=== PATIENT | female | born 1965 | race Caucasian/White ===

== ENCOUNTER → 2018-03-08 | Outpatient (CLI) | payer BC ==
--- NOTE | 2018-03-08 19:54 | CONS ---
CONSULTATION DATE OF SERVICE: 03/08/2018 53-year-old lady who has been evaluated in the Sleep Center for possible obstructive sleep apnea-hypopnea syndrome. HISTORY OF PRESENT ILLNESS/SLEEP-WAKE EVALUATION: Patient usual sleep schedule on working days from 11:30 p.m. to 5:00-5:30 a.m., on weekends from around 11:30-midnight until 8:00-8:30 a.m. Usually no problems with falling asleep, although she has a TV set in bedroom. She normally sleeps on the back position with her with snoring and occasional witnessed episodes of stopped breathing during the sleep. She wakes up from sleep with clenching of her teeth and nocturia up to 1 time. No history of hypnagogic hallucinations, sleep paralysis or cataplexy. She usually does not take any naps. [place] Sleepiness Scale is 3. PAST MEDICAL HISTORY: Positive for hyperlipidemia. PAST SURGICAL HISTORY: Cholecystectomy. MEDICATIONS: Atorvastatin. SOCIAL HISTORY: Negative for smoking. Alcohol consumption rarely. FAMILY HISTORY: Hypertension, heart problems, hyperlipidemia, arthritis, sleep apnea, snoring, cancer, diabetes, acid reflux, ulcers, thyroid problems. REVIEW OF SYSTEMS: Snoring, occasional awakenings from sleep. PHYSICAL EXAM: GENERAL lady without distress. VITAL SIGNS BP 140/83, HR 86, RR 16, height 5 feet 4 inches, weight 236, BMI 40.5, temperature 98.1, oxygen saturation room air 97%. HEENT PERRLA, EOMI, evaluation of oropharynx showed extremely low position of soft palate. Mallampati IV. Neck 15-1/2 inches in circumference. NECK Supple, no JVD. Thyroid is not palpable. LUNGS Clear to percussion and to auscultation. Good air exchange. No wheezing or rhonchi. HEART S1, S2 regular. No murmurs, gallops, or rubs. ABDOMEN Obese. Soft and nontender. Bowel sounds are present. No organomegaly appreciated. EXTREMITIES No clubbing or cyanosis. HOGSHEAD WRECKER Awake, alert, and oriented X3. Cranial nerves 2 to 7 intact. There is no fasciculation or atrophy. noted. No focal deficits observed. IMPRESSION: 1. Snoring, awakenings from sleep, extremely low position of soft palate, obstructive sleep apnea-hypopnea syndrome. 2. Menopause for 10 years. 3. Hyperlipidemia. 4. Obesity. 5. Status post cholecystectomy. PLAN: 1. Home sleep apnea test. 2. CPAP/BiPAP titration if sleep study confirms obstructive sleep apnea-hypopnea syndrome. 3. Preferable position during sleep on the side. 4. No driving if patient feels any sleepiness. 5. I will see patient for follow up visit to explain results of testing and following plan. Thank you very much for referring this patient for consultation. Sincerely, Adriano Martin MD, PhD, FAASM Diplomat of [place] [employer] Specialties [place] [employer] of [employer] Medicine Dubbing Machine Operator of [facility] [place] MMODL / IJN: [id number] /
== END | disposition home or self-care (01) ==
LOC: SLEEP 14:59
PROVIDERS: ATTEND Internal Medicine
DX: G47.33 Obstructive sleep apnea (adult) (pediatric) (principal); E78.5 Hyperlipidemia, unspecified; E66.9 Obesity, unspecified; Z68.41 Body mass index [BMI] 40.0-44.9, adult; Z78.0 Asymptomatic menopausal state; Z90.49 Acquired absence of other specified parts of digestive tract; Z79.899 Other long term (current) drug therapy
CPT/HCPCS: 99211

== ENCOUNTER → 2018-05-24 | Outpatient (CLI) | payer BC ==
--- NOTE | 2018-05-24 16:00 | PN ---
PROGRESS NOTE DATE OF SERVICE: 05/24/2018 53-year-old lady who has been followed in Sleep Center for treatment of obstructive sleep apnea-hypopnea syndrome. Recently patient had a home sleep apnea test, then received her CPAP unit. This is her first visit with the CPAP machine. Patient is able to use her CPAP equipment at home every night but she says slight leak from the full-face mask to the eyes area and the patient does not feel comfortable with that. We discussed results of sleep study in details. According to home sleep apnea test, Apnea-hypopnea index 29.1 with oxygen desaturation to 70%, which is borderline to severe sleep apnea and the patient did not sleep for the whole night of home sleep apnea test. Subsequently real apnea-hypopnea index is above 30 and is severe. I checked patient's CPAP unit. CPAP pressure in the range from 5-15 cm of water. Average pressure is 14.3 cm of water. Leak is 7 L/minute which is very minimal leak for the full-face mask. Apnea-hypopnea index for the last month is 5.3, which is acceptable range. Usage is 100% of the nights and 28/30 nights more than 4 hours with average usage is 6.2 hours. [place] Sleepiness Scale today is 0. MEDICATIONS: Atorvastatin. PHYSICAL EXAM: GENERAL: Patient in no distress., VITAL SIGNS: BP 152/89, HR is 87, RR 16, weight 249.8, temperature 98.2. Oxygen saturation at room air 98%. Oropharynx extremely low position of soft palate. Neck Supple, no JVD. Thyroid is not palpable. LUNGS Clear to percussion and to auscultation. Good air exchange. No wheezing or rhonchi. HEART S1, S2 regular. No murmurs, gallops, or rubs. ABDOMEN: Obese. Soft and nontender. Bowel sounds are present. No organomegaly appreciated. EXTREMITIES No clubbing or cyanosis. PRESS HELPER Awake, alert, and oriented X3. Cranial nerves 2 to 7 intact. There is no fasciculation or atrophy. noted. No focal deficits observed. IMPRESSION: 1. Severe obstructive sleep apnea-hypopnea syndrome. Patient demonstrated great compliance with treatment benefitting from treatment. 2. Patient has discomfort with full-face mask covering mouth and nose because it has leak, slight leak from the upper nose area to the eyes. 3. Obesity. 4. Hyperlipidemia. 5. Status post cholecystectomy. PLAN: 1. I taught patient how to adjust humidity in her CPAP unit because sometimes she feels that it is too hot in her mask and she started to sweat and sometimes it might be not enough she may develop some dryness in her mouth. 2. We will try to fit patient with a different style of full-face mask which goes to the nose from the below the nose and subsequently minimize risk of leak to the eye area. 3. The patient will continue to use CPAP equipment every night for the whole night. 4. Losing weight. 5. Sleep hygiene with regular time in bed for at least 8 hours. 6. No driving if feeling sleepiness. Thank you very much for allowing me to participate in management of your patient. MMODL / IJN: [id number] /
== END | disposition home or self-care (01) ==
LOC: SLEEP 14:12
PROVIDERS: ATTEND Internal Medicine
DX: G47.33 Obstructive sleep apnea (adult) (pediatric) (principal); E66.9 Obesity, unspecified; E78.5 Hyperlipidemia, unspecified; Z90.49 Acquired absence of other specified parts of digestive tract; Z99.89 Dependence on other enabling machines and devices

== ENCOUNTER → 2019-05-23 | Outpatient (CLI) | payer BC ==
--- NOTE | 2019-05-23 12:33 | SFUN ---
SLEEP CENTER FOLLOW UP NOTE DATE OF SERVICE: 05/23/2019 A 54-year-old lady who has been followed in the Sleep Center for treatment of obstructive sleep apnea-hypopnea syndrome. Patient continued to use her CPAP equipment every night for the whole night, according to patient no snoring with the machine. She is getting all her supplies for CPAP therapy in time. [place] Sleepiness Scale today is 4. I checked CPAP unit, range of the pressure 5-15 with average pressure of 14.1, usage for the last month, 30/30 nights with 26/30 nights for more than 4 hours with average usage 6.5 hours per night. Leak is 10 L/minute which is borderline acceptable. Apnea- hypopnea index 4.2, which is in normal range. MEDICATIONS: Atorvastatin, fenofibrate. PHYSICAL EXAM: Patient in no distress, BP 101/64, HR 88, RR 16, height 5, 4, weight 245, which is 4 pounds less than during the last visit one year ago. Oxygen saturation at room air 96%. OROPHARYNX: Extremely low position of soft palate. Mallampati 4. ABDOMEN: Slightly obese. NECK: Supple, no JVD. Thyroid is not palpable. LUNGS: Clear to percussion and to auscultation. Good air exchange. No wheezing or rhonchi. HEART: S1, S2 regular. No murmurs, gallops, or rubs. EXTREMITIES: No clubbing or cyanosis. MAPLE SUGAR MAKER: Awake, alert, and oriented X3. Cranial nerves 2 to 7 intact. There is no fasciculation or atrophy. noted. No focal deficits observed. IMPRESSION: 1. Severe obstructive sleep apnea-hypopnea syndrome. Patient demonstrated great compliance with treatment, benefitting from treatment. 2. Patient likes her nasal mask now complying with the previous mask last year over 1 year ago after mask was changed. 3. Obesity. 4. Hyperlipidemia. 5. Status post cholecystectomy. PLAN: 1. Patient will continue to use CPAP equipment every night for the whole night. 2. Continue losing weight. 3. Sleep hygiene with regular time in bed for at least 7-1/2 to 8 hours. 4. No driving if feeling sleepiness. 5. I will maintain all necessary prescriptions for CPAP supplies including mask, tube, filters. 6. Followup visit in 1 year or earlier if patient has any problems. Thank you very much for allowing me to participate in the management of your patient. Sincerely, Adriano Martin MD, PhD, FAASM Diplomat of [employer] Board [employer] Specialties [employer] Board of Internal Medicine Medical Office Manager of [facility] [place] MMKEVIN / MARILU: [id number] /
== END | disposition home or self-care (01) ==
LOC: SLEEP 09:53
PROVIDERS: ATTEND Internal Medicine
DX: G47.33 Obstructive sleep apnea (adult) (pediatric) (principal); E66.9 Obesity, unspecified; E78.5 Hyperlipidemia, unspecified; Z90.49 Acquired absence of other specified parts of digestive tract; Z99.89 Dependence on other enabling machines and devices; Z68.41 Body mass index [BMI] 40.0-44.9, adult; Z79.899 Other long term (current) drug therapy

== ENCOUNTER → 2020-05-28 | Outpatient (CLI) | payer BC ==
--- NOTE | 2020-05-28 16:48 | SFUN ---
SLEEP CENTER FOLLOW UP NOTE DATE OF SERVICE: 05/23/2020 55-year-old lady who has been followed in Sleep Center for treatment of obstructive sleep apnea-hypopnea syndrome. Patient successfully continues to use her CPAP equipment. Recently she received her new CPAP unit because the previous unit has some problems. She is using equipment every night for the whole night. No snoring with the machine. [place] Sleepiness Scale today is 5. I checked her CPAP unit. It is on automatic regimen. Range of the pressure 9-19, average pressure 14.8, usage is 30/30 nights for more than 4 hours with average usage is 7.1 hours per night. Leak is 7 L/minutes which is normal. Apnea-hypopnea index is 4.5, which is normal. MEDICATIONS: Atorvastatin 20 mg once a day. Fenofibrate 140 mg once a day. PHYSICAL EXAM: Patient in no distress. BP 133/89, HR 75, RR 15, height 5 feet 4 inches and weight 238.8, temp 98.5, oxygen saturation at room air 98%. Oropharynx extremely low position of soft palate. Mallampati 4. NECK: Supple, no JVD. Thyroid is not palpable. LUNGS: Clear to percussion and to auscultation. Good air exchange. No wheezing or rhonchi. HEART: S1, S2 regular. No murmurs, gallops, or rubs. ABDOMEN: Obese. Soft and nontender. Bowel sounds are present. No organomegaly appreciated. EXTREMITIES: No clubbing or cyanosis. LAST IRONER: Awake, alert, and oriented X3. Cranial nerves 2 to 7 intact. There is no fasciculation or atrophy. noted. No focal deficits observed. IMPRESSION: 1. Obstructive sleep apnea-hypopnea syndrome. Patient demonstrated 100% compliance with treatment benefitting from treatment. 2. The patient feels comfortable with her nasal mask and feels comfortable with the machine. 3. Obesity. 4. Hyperlipidemia. 5. Status post cholecystectomy. PLAN: 1. Patient will continue to use PAP equipment every night for the whole night. 2. Sleep hygiene with regular time in bed for at least 7-1/2 to 8 hours. 3. Precautions related to driving. No driving if feeling sleepiness. 4. I will maintain all necessary prescription for PAP supplies including mask, tube, filters. 5. Watching weight. 6. No driving if feeling sleepiness. 7. Follow-up visit in 6 months or earlier if patient has any problems. Thank you very much for allowing me to participate in management of your patient. Sincerely, Adriano Martin MD, PhD, FAASM Diplomat of [place] Board of Medical Specialties Swedish Board of Internal Medicine Environmental Scientists of [facility] [place] MMODL / BALJITN: [id number] /
== END | disposition home or self-care (01) ==
LOC: SLEEP 09:55
PROVIDERS: ATTEND Internal Medicine
DX: G47.33 Obstructive sleep apnea (adult) (pediatric) (principal); E66.9 Obesity, unspecified; E78.5 Hyperlipidemia, unspecified; Z99.89 Dependence on other enabling machines and devices; Z90.49 Acquired absence of other specified parts of digestive tract; Z79.899 Other long term (current) drug therapy

== ENCOUNTER → 2021-05-27 | Outpatient (CLI) | payer BC ==
--- NOTE | 2021-05-28 06:52 | SFUN ---
SLEEP CENTER FOLLOW UP NOTE DATE OF SERVICE: 05/27/2021 56-year-old lady has been followed in Sleep Center for treatment of obstructive sleep apnea-hypopnea syndrome. Patient continued to use her CPAP equipment every night. According to her , no snoring while she is using machine. She is getting for her supplies in time. [place] Sleepiness Scale today is 5. I checked his CPAP unit. Range of the pressure 9-19, average pressure 13.7, which is slightly less than during the last visit. Usage 30/30 nights for more than 4 hours with average 7.2 hours per night. Leak is 8 L/minute which is normal. Apnea-hypopnea index is 3.1, which is normal. MEDICATIONS: Atorvastatin 20 mg once a day, fenofibrate 145 mg once a day, oils daily supplement. PHYSICAL EXAMINATION: GENERAL: Patient in no distress. BP 142/89, HR 82, RR 16, height 5 feet 4-3/4 inches, weight 248.4 pounds, body mass index 41.6, temperature 97.3, oxygen saturation at room air 97%. Oropharynx: Extremely low position of soft palate, Mallampati 4. NECK: Supple, no JVD. Thyroid is not palpable. LUNGS: Clear to percussion and to auscultation. Good air exchange. No wheezing or rhonchi. HEART: S1, S2 regular. No murmurs, gallops, or rubs. ABDOMEN: Obese. Soft and nontender. Bowel sounds are present. No organomegaly appreciated. EXTREMITIES: No clubbing or cyanosis. WATER/WASTEWATER PROJECT MANAGER: Awake, alert, and oriented X3. Cranial nerves 2 to 7 intact. There is no fasciculation or atrophy. noted. No focal deficits observed. IMPRESSION: 1. Obstructive sleep apnea-hypopnea syndrome. Patient demonstrated great compliance with treatment benefitting from treatment, normal respiration on CPAP. 2. Obesity. The patient increased weight on about 10 pounds since previous visit. 3. Hyperlipidemia. 4. Status post cholecystectomy. PLAN: 1. Patient will continue to use PAP equipment every night for the whole night. 2. Sleep hygiene with regular time in bed for at least 7-1/2 to 8 hours. 3. Precautions related to driving. No driving if feeling sleepiness. 4. I will maintain all necessary prescription for PAP supplies including mask, tube, filters. 5. Watching weight. 6. Follow-up visit in 6 months or earlier if patient has any problems. Thank you very much for allowing me to participate in the management of your patient. Sincerely, Adriano Martin MD, PhD, FAASM Diplomat of [place] [employer] Specialties Sleep Medicine Board of [place] Board of Internal Medicine Surgical Instrument Mechanic of [facility] [place] MMODL / MARILU: [id number] /
== END ==
LOC: SLEEP 10:24
PROVIDERS: ATTEND Internal Medicine
DX: G47.33 Obstructive sleep apnea (adult) (pediatric) (principal); E66.9 Obesity, unspecified; E78.5 Hyperlipidemia, unspecified; Z90.49 Acquired absence of other specified parts of digestive tract; Z68.41 Body mass index [BMI] 40.0-44.9, adult

== ENCOUNTER → 2022-05-26 | Outpatient (CLI) | payer BC ==
--- NOTE | 2022-05-26 11:04 | P.PN ---
Subjective DATE: 05/26/2022 FOLLOW UP VISIT. Patient with obstructive sleep apnea hypopnea syndrome return to sleep center for follow-up visit. Information from previous visit have been reviewed. Patient is using PAP equipment every night for the whole night, getting PAP supplies in time. The patient does not have significant problems with the mask, PAP unit and humidification. [place] sleepiness scale is 2, which is normal. I checked information from PAP unit. PAP unit pressure 9-19, average 14.1, sometimes pressure came up to 19 cm H2O. Usage is 100 % for more then 4 hours, average 7.5 hours per night. Leak is 18.4 l/m, which is in acceptable range. Apnea Hypopnea Index is 3.2, which is normal. MEDICATIONS:1. Atorvastatin 2. Fenofibrate During physical exam: GENERAL: A pleasant patient without any distress. VITAL SIGNS: BP 127/84, HR 78, RR 16 , weight 253.6, temperature 97.4, oxygen saturation at room air 95 % . HEENT: PERRLA, EOMI.low position of soft palate, Mallapati 4 . NECK: Supple. No JVD. LUNGS: Clear to percussion and to auscultation. Good air exchange. No wheezing or rhonchi. HEART: S1, S2 regular. ABDOMEN: Soft and nontender. Obese EXTREMITIES: No clubbing or cyanosis. ASSEMBLY REPAIRER: Awake, alert, and oriented x3. No focal deficit. Impressions: 1. Obstructive sleep apnea-hypopnea syndrome. Patient demonstrated great compliance with treatment, benefiting from treatment. 2. Obesity. 3. Hyperlipidemia. 4. Status post cholecystectomy. Plan: 1. Continue using PAP equipment every night for the whole night. I changed maximal level of pressure to 20 cm of water. 2. To change air filter at least 1-2 times per month. 3. PAP unit should stay lower then position of the head. 4. Advised patient to remove all remaining water from humidifier canister daily and make it dry after each usage. Refill canister with fresh distilled water before each usage. 5. Sleep hygiene with regular time in bed for at least 8 hours. 6. Precautions related to driving. No driving if feel any sleepiness. 7. I will maintain prescription for PAP supplies including mask, tube, filters. 8. Follow up visit in 6 months or earlier if patient has any problems. 9. Watching and losing weight. Thank you very much for allowing me to participate in the management of your patient. Adriano Martin MD, PhD, FAASM. Diplomat of [place] Board of Sleep Medicine, Sleep Medicine Board by [employer] Board of Internal Medicine Paper Plate Machine Tender of [facility] [place]
== END ==
LOC: SLEEP 09:51
PROVIDERS: ATTEND Internal Medicine
DX: G47.33 Obstructive sleep apnea (adult) (pediatric) (principal); Z99.89 Dependence on other enabling machines and devices; E66.9 Obesity, unspecified; E78.5 Hyperlipidemia, unspecified; Z98.890 Other specified postprocedural states
CPT/HCPCS: 99212

== ENCOUNTER → 2023-05-25 | Outpatient (CLI) | payer BC ==
--- NOTE | 2023-05-25 11:12 | P.PN ---
Subjective DATE: 05/25/2023 FOLLOW UP VISIT. Patient with obstructive sleep apnea hypopnea syndrome return to sleep center for follow-up visit. Information from previous visit have been reviewed. Patient is using PAP equipment every night for the whole night, getting PAP supplies in time. The patient does not have significant problems with the mask, PAP unit and humidification. [place] sleepiness scale is 5 which is normal. I checked information from PAP unit. PAP unit pressure 9-20, average 13.8 cm H2O. Usage is 100% % for more then 4 hours, average 6.5 hours per night. Leak is 15.2 l/m, which is in acceptable range. Apnea Hypopnea Index is 3.3, which is normal. MEDICATIONS:1. Atorvastatin 2. Fenofibrate During physical exam: GENERAL: A pleasant patient without any distress. VITAL SIGNS: BP 123/80, HR 83, RR 18 , weight 250.6, temperature 98.2, oxygen saturation at room air 97 % . HEENT: PERRLA, EOMI.low position of soft palate, Mallapati 4 . NECK: Supple. No JVD. LUNGS: Clear to percussion and to auscultation. Good air exchange. No wheezing or rhonchi. HEART: S1, S2 regular. ABDOMEN: Soft and nontender. Obese EXTREMITIES: No clubbing or cyanosis. COLLECTION TELLER: Awake, alert, and oriented x3. No focal deficit. Impressions: 1. Obstructive sleep apnea-hypopnea syndrome. Patient demonstrated great compliance with treatment, benefiting from treatment. 2. Obesity. 3. Hyperlipidemia. 4. Status post cholecystectomy. Plan: 1. Continue using PAP equipment every night for the whole night. 2. To change air filter at least 1-2 times per month. 3. PAP unit should stay lower then position of the head. 4. Advised patient to remove all remaining water from humidifier canister daily and make it dry after each usage. Refill canister with fresh distilled water before each usage. 5. Sleep hygiene with regular time in bed for at least 8 hours. 6. Precautions related to driving. No driving if feel any sleepiness. 7. I will maintain prescription for PAP supplies including mask, tube, filters. 8. Watching and losing weight. 9. Follow up visit in 6 months or earlier if patient has any problems. Thank you very much for allowing me to participate in the management of your patient. Adriano Martin MD, PhD, FAASM. Diplomat of [place] Board of Sleep Medicine, Sleep Medicine Board by [place] Board of Internal Medicine Eyewear Manufacturing Supervisor of [facility] [place]
== END ==
LOC: 3 N SLEEP 10:24
PROVIDERS: ATTEND Internal Medicine
DX: G47.33 Obstructive sleep apnea (adult) (pediatric) (principal); E66.9 Obesity, unspecified; E78.5 Hyperlipidemia, unspecified; Z90.49 Acquired absence of other specified parts of digestive tract; Z99.89 Dependence on other enabling machines and devices
CPT/HCPCS: 99212

== ENCOUNTER → 2024-05-30 | Outpatient (CLI) | payer BC ==
[2024-05-30 11:26] VITALS: BP 132/79; PULSE 82; RESP 16; TEMP 98
--- NOTE | 2024-05-30 11:34 | P.PROGSL ---
Subjective DATE: 05/30/2024 FOLLOW UP VISIT. Patient with obstructive sleep apnea hypopnea syndrome return to sleep center for follow-up visit. Information from previous visit have been reviewed. Patient is using PAP equipment every night for the whole night, getting PAP supplies in time. The patient does not have significant problems with the mask, PAP unit and humidification. [place] sleepiness scale is 4, which is normal. I checked information from PAP unit. PAP unit pressure 9-20, average 14.2 cm H2O. Usage is 100% for more then 4 hours, average 6.9 hours per night. Leak is 14 l/m, which is in acceptable range. Apnea Hypopnea Index is 3.1, which is normal. MEDICATIONS have been reviewed, please see below. During physical exam: GENERAL: A pleasant patient without any distress. VITAL SIGNS: Please see below, weight is 243 lbs. HEENT: PERRLA, EOMI.low position of soft palate, Mallapati 4 . NECK: Supple. No JVD. LUNGS: Clear to percussion and to auscultation. Good air exchange. No wheezing or rhonchi. HEART: S1, S2 regular. ABDOMEN: Soft and nontender. Obese EXTREMITIES: No clubbing or cyanosis. RESET MERCHANDISER: Awake, alert, and oriented x3. No focal deficit. Impressions: 1. Obstructive sleep apnea-hypopnea syndrome. Patient demonstrated great compliance with treatment, benefiting from treatment. 2. Obesity, BMI 41.7, patient lost 7 pounds comparing with previous visit. 3. Hyperlipidemia. 4. Status post cholecystectomy. Plan: 1. Continue using PAP equipment every night for the whole night. 2. Sleep hygiene with regular time in bed for at least 7.5-8 hours 3. PAP unit should stay lower then position of the head. 4. Advised patient to remove all remaining water from humidifier canister daily and make it dry after each usage. Refill canister with fresh distilled water before each usage. 5. Watching and continue losing weight. 6. Precautions related to driving. No driving if feel any sleepiness. 7. I will maintain prescription for PAP supplies including mask, tube, filters. 8. Follow up visit in 8 months or earlier if patient has any problems. Thank you very much for allowing me to participate in the management of your patient. Adriano Martin MD, PhD, FAASM. Diplomat of [place] [employer] of Sleep Medicine, Sleep Medicine Board by [place] [employer] of Internal Medicine Director Of Tax Services of [facility] [place] Objective - Vital Signs Vital Signs: Vital Signs Temp 98 F 05/30/24 11:25 Pulse 82 05/30/24 11:25 Resp 16 05/30/24 11:25 BP 132/79 05/30/24 11:25 Pulse Ox 96 05/30/24 11:25 FiO2 Intake & Output 05/29/24 05/30/24 05/30/24 18:59 06:59 18:59 Weight 110.223 kg Home Medications: Home Medications Medication Instructions Recorded Confirmed Type Atorvastatin [Lipitor] 20 mg PO DAILY 05/30/24 05/30/24 History Fenofibrate Nanocrystallized 145 mg PO DAILY 05/30/24 05/30/24 History [Fenofibrate] Spironolactone 200 mg PO DAILY 05/30/24 05/30/24 History
== END ==
LOC: 3 N SLEEP 10:35
PROVIDERS: ATTEND Internal Medicine
DX: G47.33 Obstructive sleep apnea (adult) (pediatric) (principal); E66.9 Obesity, unspecified; Z68.41 Body mass index [BMI] 40.0-44.9, adult; E78.5 Hyperlipidemia, unspecified; Z90.49 Acquired absence of other specified parts of digestive tract; Z99.89 Dependence on other enabling machines and devices
CPT/HCPCS: 99212